=== PATIENT | male | born 1960 | race Caucasian/White ===

== ENCOUNTER → 2016-09-08 | Outpatient (CLI) | payer OTHER ==
--- NOTE | 2016-09-08 15:23 | RAD ---
Right hip radiographs History: Right hip pain for 2-3 years. Comparison: None. Findings: AP and frog-leg views of the right hip. There is severe deformity of the right hip with collapse of the femoral head as well as subchondral cyst and sclerosis formation. There is severe loss of joint space. Findings are compatible with severe degenerative change, possibly secondary to previous avascular necrosis. Impression: Severe right hip degeneration, possibly secondary to previous avascular necrosis.
--- NOTE | 2016-09-08 16:53 | RAD ---
Lumbar spine, 3 views, 09/08/2016: History: Leg and back pain The lumbar vertebral heights are well-maintained. The intervertebral disc spaces are well preserved. There are mild scattered marginal spurs. There are mild degenerative changes involving the facet joints in the lower lumbar spine. Aortic calcific plaquing is present. IMPRESSION: 1. Mild degenerative change. 2. No acute bony abnormality is detected.
== END | disposition home or self-care (01) ==
LOC: RAD 10:47
PROVIDERS: ATTEND Otolaryngology
DX: M16.11 Unilateral primary osteoarthritis, right hip (principal); M46.86 Other specified inflammatory spondylopathies, lumbar region
CPT/HCPCS: 72100; 73502

== ENCOUNTER → 2018-03-26 | Outpatient (CLI) | payer MEDICARE, OTHER ==
[~2018-03-26] MED LIST: FERR325T14 PO; HYDR-2762 PO; IBUP-1060 PO; LISI10TA2 PO; WARF-78 PO
[2018-03-26 09:30] LABS: ALBUMIN 3.7 g/dL (3.4-5.0); GFR 76.7; POTASSIUM 3.9 mmol/L (3.5-5.1)
[2018-03-26 09:33] LABS: BASO # 0.1 x10^3/uL (0.0-0.2); BASO % 1 % (0-3); EOS # 0.1 x10^3/uL (0.0-0.7); EOS % 2 % (0-3); HEMATOCRIT 42.1 % (39.0-53.0); HEMOGLOBIN 14.9 g/dL (13.0-17.5); LYMPH # 1.6 x10^3/uL (1.0-4.8); LYMPH % 25 % (24-48); MEAN CORPUSCULAR HEMOGLOBIN 34 pg (25-35); MEAN CORPUSCULAR HGB CONC 35 g/dL (31-37); MEAN CORPUSCULAR VOLUME 96 fL (79-100); MONO # 0.8 x10^3/uL (0.0-1.1); MONO % 13 % (0-9); NEUT # 3.7 x10^3uL (1.8-7.7); NEUT % 59 % (31-73); PLATELET COUNT 312 x10^3/uL (140-400); RED BLOOD COUNT 4.39 x10^6/uL (4.30-5.70); RED CELL DISTRIBUTION WIDTH 13.3 % (11.5-14.5); WHITE BLOOD COUNT 6.3 x10^3/uL (4.0-11.0)
[2018-03-26 09:47] LABS: BILIRUBIN,URINE NEGATIVE (NEG); CLARITY,URINE CLEAR; COLOR,URINE YELLOW; NITRITE,URINE NEGATIVE (NEG); PH,URINE 6.5; PROTEIN,URINE NEGATIVE (NEG-TRACE); UROBILINOGEN,URINE 0.2 mg/dL (0.2 mg/dL)
[2018-03-26 10:03] LABS: PROTHROMBIN TIME PATIENT 13.1 SEC (11.7-14.0)
[2018-03-26 10:15] LABS: SQUAMOUS EPITHELIAL CELL,UR FEW /LPF
[2018-03-26 10:16] LABS: BACTERIA,URINE 0 /HPF (0-FEW); RBC,URINE 0 /HPF (0-2)
--- NOTE | 2018-03-26 13:39 | EKG ---
[facility] [address] [place] [address] Test Date: 2018-03-26 Test Time: 13:21:50 Pat Name: MAIN GONZALEZ Department: Room: Gender: M Manager Medicare: : 1960 Requested By: JOY LAWRENCE Order Number: [id number] Reading MD: Flip Ya MD Measurements Intervals Thurston Rate: 55 P: 42 MA: 162 QRS: -53 QRSD: 66 T: 28 QT: 418 QTc: 402 Interpretive Statements SINUS RHYTHM CONSIDER PRIOR INFERIOR INFARCT Electronically Signed On 03-26-2018 15:45:18 CDT by Flip Ya MD
--- NOTE | 2018-03-26 15:30 | RAD ---
PA and lateral chest x-ray without comparison for preop, right hip surgery. FINDINGS: The lungs are clear. The cardiomediastinum is grossly unremarkable. No significant soft tissue or osseous abnormalities are seen. IMPRESSION: 1. No acute cardiopulmonary abnormality. Electronically signed by: Kevin Lerner MD (03/26/2018 3:26 PM) [facility]
== END | disposition home or self-care (01) ==
LOC: SURGPAT 13:39
PROVIDERS: ATTEND Orthopaedic Surgery Sports Medicine
DX: Z01.818 Encounter for other preprocedural examination (principal); M16.11 Unilateral primary osteoarthritis, right hip; I10 Essential (primary) hypertension
CPT/HCPCS: 36415; 71046; 80048; 81001; 82040; 85025; 85610; 85651; 85730; 87641; 93005

== ENCOUNTER → 2018-04-03 | Outpatient (CLI) | payer MEDICARE ==
--- NOTE | 2018-04-03 16:07 | CARD ---
MR#: [id number] Date of Study: 04/03/2018 Ordering Physician: ALISSA CACERES, Referring Physician: ALISSA CACERES, Tech: Itzel Sapp APPROVED REPORT EXAM: Two-dimensional and M-mode echocardiogram with Doppler and color Doppler. Other Information Quality : GoodHR: 60bpm INDICATION Pre-Op RISK FACTORS Hypertension Tobacco 2D DIMENSIONS RVDd2.9 (2.9-3.5cm)Left Atrium(2D)2.8 (1.6-4.0cm) IVSd1.0 (0.7-1.1cm)Aortic Root(2D)3.1 (2.0-3.7cm) LVDd4.6 (3.9-5.9cm)LVOT Diameter2.0 (1.8-2.4cm) PWd0.8 (0.7-1.1cm)LVDs2.3 (2.5-4.0cm) FS (%) 50.3 %SV79.5 ml LVEF(%)81.6 (>50%) Aortic Valve AoV Peak Arcenio.137.7cm/sAoV VTI23.9cm AO Peak GR.7.6mmHgLVOT Peak Arcenio.68.5cm/s LVOT VTI 20.02cmAO Mean GR.4mmHg CHANDRAKANT (VMAX)1.63ye1OIC (VTI)2.57cm2 Mitral Valve MV E Lmqkbfrg51.8cm/sMV DECEL TNZD562bv MV A Tbyejfsn89.6cm/sMV VHX11lf E/A Ratio1.2MVA (PHT)4.04cm2 TDI E/Lateral E'5.3E/Medial E'5.5 Pulmonary Valve PV Peak Biblsjyd787.1cm/sPV Peak Grad.6mmHg Tricuspid Valve TR P. Gomzmucf043uh/sRAP NKKUAPDF7xdNi TR Peak Gr.03zyThTYYQ61rtJo Pulmonary Vein S1 Myacyosh76.0cm/sD2 Rcbuchqq30.1cm/s PVa nslcccsv137aghc LEFT VENTRICLE The left ventricle is normal size. There is normal left ventricular wall thickness. The left ventricu lar systolic function is normal and the ejection fraction is within normal range. The Ejection Fracti on is 50-55%. There is normal LV segmental wall motion. The left ventricular diastolic function and f illing is normal for age. RIGHT VENTRICLE The right ventricle is borderline dilated. There is normal right ventricular wall thickness. The righ t ventricular systolic function is normal. ATRIA The left atrium size is normal. The right atrium size is normal. The interatrial septum is intact wit h no evidence for an atrial septal defect or patent foramen ovale as noted on 2-D or Doppler imaging. AORTIC VALVE The aortic valve is thickened but opens well. Doppler and Color Flow revealed trace aortic regurgitat ion. There is no significant aortic valvular stenosis. MITRAL VALVE The mitral valve is normal in structure and function. There is no mitral valve stenosis. Doppler and Color-flow revealed trace mitral regurgitation. TRICUSPID VALVE The tricuspid valve is normal in structure and function. Doppler and Color Flow revealed trace tricus pid regurgitation. There is no tricuspid valve stenosis. PULMONIC VALVE The pulmonic valve is not well visualized. Doppler and Color Flow revealed no pulmonic valvular regur gitation. There is no pulmonic valvular stenosis. GREAT VESSELS The aortic root is normal in size. Normal pulmonary venous flow (Doppler). The IVC is normal in size and collapses >50% with inspiration. PERICARDIAL EFFUSION There is no evidence of significant pericardial effusion. Critical Notification Critical Value: No <Conclusion> The left ventricular systolic function is normal and the ejection fraction is within normal range. Th e Ejection Fraction is 50-55%. There is normal LV segmental wall motion. Signed by : Flip Ya, Electronically Approved : 04/03/2018 16:06:22
== END | disposition home or self-care (01) ==
LOC: ECHO 12:54
PROVIDERS: ATTEND Internal Medicine Cardiovascular Disease
DX: R01.1 Cardiac murmur, unspecified (principal); R94.31 Abnormal electrocardiogram [ECG] [EKG]; I10 Essential (primary) hypertension
CPT/HCPCS: 93306

== ENCOUNTER 2018-04-09 08:30 | Inpatient (IN) | payer MEDICARE, OTHER ==
[~2018-04-09] VITALS: Ht 167.6 cm; Wt 73.0 kg
[2018-04-09] VITALS (9 sets, daily range): BP systolic 124–161; BP diastolic 78–103
[~2018-04-09 08:30] MED LIST changes: +ACETAMINOPHEN 500 MG TABLET PO PRN; -FERR325T14 PO; -HYDR-2762 PO; +HYDROcodone/APAP 7.5/325MG 1 TAB TABLET PO PRN; +HYDROmorphone 2 MG/ML VIAL IV PRN; +IV RINGERS,LACTATED 1000ML 1,000 ML IV SCH; +LIDOCAINE 1% PF 2 ML VIAL. ID PRN; +MELOXICAM 7.5 MG TABLET PO PRN; +MORPHINE SULFATE 2 MG/ML VIAL. IV PRN; +ONDANSETRON PF 4 MG/2 ML VIAL. IV PRN; +PROCHLORPERAZINE 10 MG/2 ML VIAL. IV PRN; +TRANEXAMIC ACID 1,000 MG in IV NS 50ML -- 1ST BAG INJ ONE; +TRANEXAMIC ACID 1,000 MG in IV NS 50ML -- 2ND BAG INJ ONE; +TV=100ml MORPHINE 5 MG, KETOROLAC 30 MG, ROPIVacaine 0.5% PF 60 ML, EPINEPH... INT ART ONE; -WARF-78 PO; +fentaNYL PF VIAL 100 MCG/2 ML VIAL IV PRN
[2018-04-09] MEDS ORDERED: WARF-78 PO (08:58)
[2018-04-09] MEDS ORDERED: LIDOCAINE 2% PF Vial for OR 5 ML VIAL. ONE (09:28)
[2018-04-09] MEDS ORDERED: fentaNYL PF VIAL 250 MCG/5 ML VIAL ONE (09:28)
[2018-04-09] MEDS ORDERED: MIDAZOLAM HCL/PF 2 MG/2 ML VIAL. ONE (09:28)
[2018-04-09] MEDS ORDERED: ROCURONIUM 50 MG/5 ML VIAL. ONE (09:28)
[2018-04-09] MEDS ORDERED: PROPOFOL 20 ML IV ONE (09:28)
[2018-04-09] MEDS ORDERED: ONDANSETRON PF 4 MG/2 ML VIAL. ONE ×2 (09:29)
[2018-04-09] MEDS ORDERED: DEXAMETHASONE SOD PHOS 20 MG/5 ML VIAL. ONE ×2 (09:29)
[2018-04-09] MEDS ORDERED: MORPHINE SULFATE 2 MG/ML VIAL. IV PRN (09:45)
[2018-04-09] MEDS ORDERED: ZOLPIDEM 5 MG TABLET. PO PRN (09:45)
[2018-04-09] MEDS ORDERED: 0.9 % SODIUM CHLORIDE 10 ML DISP.SYRIN. IV PRN (09:45)
[2018-04-09] MEDS ORDERED: METOCLOPRAMIDE HCL 10 MG/2 ML VIAL. IV PRN (09:45)
[2018-04-09] MEDS ORDERED: MORPHINE SULFATE 4 MG/ML VIAL. IV PRN ×2 (09:45)
[2018-04-09] MEDS ORDERED: oxyCODONE/APAP 7.5/325 1 TAB TABLET PO PRN (09:45)
[2018-04-09] MEDS ORDERED: PROCHLORPERAZINE 5 MG TABLET. PO PRN (09:45)
[2018-04-09] MEDS ORDERED: oxyCODONE/APAP 5/325 1 TAB TABLET PO PRN (09:45)
[2018-04-09] MEDS ORDERED: DEXTROSE 50% 25 GM / 50ML DISP.SYRIN. IV PRN (09:45)
[2018-04-09] MEDS ORDERED: MORPHINE SULFATE 10 MG/ML VIAL. IV PRN (09:45)
[2018-04-09] MEDS ORDERED: fentaNYL PF VIAL 100 MCG/2 ML VIAL IV PRN ×2 (09:45)
[2018-04-09] MEDS ORDERED: HYDROcodone/APAP 10/325 1 TAB TABLET PO PRN (09:45)
[2018-04-09] MEDS ORDERED: CALCIUM CARBONATE 500 MG TAB.CHEW PO PRN (09:45)
[2018-04-09] MEDS ORDERED: PROCHLORPERAZINE 10 MG/2 ML VIAL. IV PRN (09:45)
[2018-04-09] MEDS ORDERED: ACETAMINOPHEN 325 MG TABLET. PO PRN (09:45)
[2018-04-09] MEDS ORDERED: traMADol 50 MG TABLET PO PRN ×2 (09:45)
[2018-04-09] MEDS ORDERED: diphenhydrAMINE 50 MG/ML VIAL IV PRN (09:45)
[2018-04-09 09:52] LABS: PROTHROMBIN TIME PATIENT 13.1 SEC (11.7-14.0)
[2018-04-09] MEDS ORDERED: PHENYLEPHRINE in 0.9% NACL PF 1 MG/10 ML SYRINGE. IV ONE (10:44)
[2018-04-09] MEDS: SENNOSIDES/DOCUSATE 8.6/50MG TABLET. PO SCH (11:00)
[2018-04-09] MEDS ORDERED: NEOSTIGMINE METHYLSULFATE 5 MG/5 ML SYRINGE. ONE (11:59)
[2018-04-09] MEDS ORDERED: GLYCOPYRROLATE 1 MG/5 ML VIAL. ONE (11:59)
[2018-04-09] MEDS ORDERED: LABETALOL 20 MG/4 ML DISP.SYRIN. IVP ONE (12:19)
--- NOTE | 2018-04-09 12:19 | PDOC4 ---
Operative Note Operative Note Due to procedure: 04/09/2018 Surgeon: Leo Lawrence Linking Machine Operator: Frandy Ortiz APRN Preoperative diagnosis: Advanced primary right hip degenerative joint disease Postoperative diagnosis: Same Procedure performed: Right total hip arthroplasty Anesthesia: Gen. Findings: Advanced primary right hip degenerative joint disease Blood loss 100 mL Complications: None Components inserted: Fleming and nephew size 7 standard offset anthology femur, 52 mm outer diameter R3 shell, 36 liner with a 20 elevation directed posteriorly, Oxinium 36+0 femoral head Reason for procedure: Patient is a very pleasant 57-year-old gentleman with severe progressive right hip and groin pain. Clinical and radiographic examination were consistent with above diagnosis and after failure of conservative therapies, we discussed the risks, benefits, and alternatives and he wished to proceed with the above surgery. Description of procedure: Patient was greeted in the preoperative area by myself for the correct extremity was verified and marked. Is taken back to the operative suite and his antibiotics started as he was brought back. Once in the operating room, he was transferred gently supine to the operating room table and had successful induction of a general anesthetic. He was then set in a lateral decubitus position with the right side up and secured to the bed with her padded hip positioning devices. Axillary roll was used. We then proceeded to prep and drape right lower extremity in our usual sterile fashion including an [place]. I then palpated and marked surface anatomy and harika a line from my standard posterolateral skin incision and incised skin with a scalpel and dissected subcutaneous tissue and cauterized bleeders as a were encountered. Identified the fascia kalpana of the thigh and incised this in line with the skin incision, bluntly splitting the gluteus hai. Our self- retaining retractor was then placed. I swept bursal tissue posteriorly and identified his piriformis and quadratus and took these down with electrocautery , taking the latter for later repair. After this, I incised the hip capsule a Z- plasty type incision, taking ends of it for later repair. I was unable to dislocate the femoral head. I palpated and marked reproducible landmarks at greater and lesser as well as femoral head and made measurements for length and offset. I then palpated and made a line with electrocautery on the femoral neck about 1 cm proximal to the lesser trochanter and made my femoral neck cut. I delivered the bony pieces from the operative field. I then placed my acetabular retractors and inspected the acetabulum. I removed soft tissue from the floor the acetabulum and identified the transverse acetabular ligament. I excised the labrum. I then began reaming, starting with a 44 and reaming up to 52 which gave a good punctate bleeding bony bed. I impacted my cup in position referencing his [place] anatomy, transverse acetabular ligament, and crossbar attachment. I then palpated for his greater sciatic notch and used this for a guide placing a screw into his posterior column which gave good purchase. Prior to impacting scopic, it should be noted I did irrigate out the operative field. Again at this point, irrigated out the operative field and then impacted my polyethylene liner into position. The elevation was directed posteriorly. I then removed the acetabular retractors and direct my attention to the proximal femur, repositioning the leg. Proximal femoral elevator was introduced. I did then used the helena cutting osteotome followed by the lateralizing reamer and canal finding reamer. I then began broaching and broached up to a size 6. I trialed the standard +0 but was short of my measurements and therefore remove the size 6 stem and impacted a 7 into position which gave a good fit and fill. I then placed the +0 ball and measured and reduced the hip. I was happy with the measurements and stability as well as leg length. The hip was then dislocated again and I tried the +4 but it was too tight to reduce. Therefore I removed the size 7 broach, the femoral canal was thoroughly irrigated, I then impacted the size 7 stem into position. I then again trialed the +0 and +4, the +4 was not able to be reduced. The +0 gave great range of motion and stability. I felt his leg lengths were appropriate as well. We then dislocated the hip again, removed the trial ball, Montejo dried the Caceres taper region and gently impacted the Oxinium femoral head and position. I then irrigated out the operative field and cup again. I inspected the acetabulum to make sure there was no loose debris which it was not. They present reduce. I then closed capsule with simple interrupted #2 Ethibond. Piriformis was reapproximated through drill holes. Quadratus repaired with mruzlb-qa-utkel #1 Vicryl. I then injected my periarticular mixture into the nneka-incisional soft tissues. The self-retaining retractor was then removed and I closed the fascia with running # 2 Quill. Inverted interrupted 20 was used for the the subcutaneous tissue, multilayered fashion. Running 4-0 Monocryl in a buried subcuticular fashion was used for skin. The counts were correct 2 prior to wound closure. No complications. Surgery was well tolerated by the patient. At the conclusion, the hip was cleansed and dried and our incisional wound VAC was applied. Patient was laid gently supine and transferred gently supine to the hospital bed. He was taken to the PACU in a stable and extubated condition. Postoperative plan is to admit him to the joint center for DVT and antibiotic prophylaxis. He'll begin his rehabilitation. LEO LAWRENCE II, MD Apr 09, 2018 12:19
[2018-04-09] MEDS ORDERED: RACEPINEPHRINE 2.25% 0.5 ML NEBU. ONE (12:20)
[2018-04-09] MEDS ORDERED: LIDOCAINE 2% 100 MG/5 ML SYRINGE. ONE (12:20)
--- NOTE | 2018-04-09 13:34 | RAD ---
AP pelvis, single view right proximal femur 04/09/2018 12:55 PM Indication: POST OP, RIGHT HIP REPLACMENT Comparison: right hip radiographs, March 08, 2018. Findings: There are postsurgical changes following recent right total hip arthroplasty. Hardware is appropriate in position without evidence of complication. No fractures or dislocations are identified. Stigmata of recent surgery including surgical drainage catheter noted. Impression: Expected postsurgical changes following right total hip arthroplasty. Electronically signed by: Boom Alcantara MD (04/09/2018 1:30 PM) [facility]
[2018-04-09] MEDS: LISINOPRIL 10 MG TABLET PO SCH (14:17)
[2018-04-09] MEDS: HYDROcodone/APAP 7.5/325MG 1 TAB TABLET PO PRN ×2 (14:17→21:06)
[2018-04-09] MEDS: ceFAZolin SODIUM 1 GM in IV DEXTROSE 5% 50 ML IV SCH ×2 (15:55→22:04)
[2018-04-09] MEDS ORDERED: WARFARIN 7.5 MG TABLET. PO ONE (16:00)
[2018-04-09] MEDS: IV DEXTROSE 5 %-0.45 % NACL 1,000 ML IV SCH ×2 (16:00→19:44)
[2018-04-09] MEDS: FERROUS SULFATE 325 MG TABLET. PO SCH (17:06)
[2018-04-09] MEDS: CELECOXIB 100 MG CAPSULE. PO SCH (21:05)
[2018-04-10 02:40] VITALS: BP 111/70
[2018-04-10] MEDS: ceFAZolin SODIUM 1 GM in IV DEXTROSE 5% 50 ML IV SCH (03:57)
[2018-04-10] MEDS: HYDROcodone/APAP 7.5/325MG 1 TAB TABLET PO PRN ×4 (04:01→16:47)
[2018-04-10 05:19] LABS: HEMATOCRIT 40.7 % (39.0-53.0); HEMOGLOBIN 14.1 g/dL (13.0-17.5)
[2018-04-10 05:31] LABS: PROTHROMBIN TIME PATIENT 17.1 SEC (11.7-14.0)
[2018-04-10] MEDS: IV DEXTROSE 5 %-0.45 % NACL 1,000 ML IV SCH ×2 (05:44→15:44)
[2018-04-10] MEDS ORDERED: MAGNESIUM HYDROXIDE 2,400 MG/30 ML ORAL.SUSP. PO PRN (06:00)
[2018-04-10 06:21] VITALS: BP 105/71
[2018-04-10] MEDS: MULTIVITAMIN with MINERAL TABLET. PO SCH (08:09)
[2018-04-10] MEDS: FERROUS SULFATE 325 MG TABLET. PO SCH ×2 (08:09→16:47)
[2018-04-10] MEDS: CELECOXIB 100 MG CAPSULE. PO SCH ×2 (08:09→20:22)
[2018-04-10] MEDS: TAMSULOSIN 0.4 MG CAP.ER.24H. PO SCH (08:09)
[2018-04-10] MEDS: SENNOSIDES/DOCUSATE 8.6/50MG TABLET. PO SCH (08:10)
[2018-04-10] MEDS: LISINOPRIL 10 MG TABLET PO SCH (08:13)
[2018-04-10 11:00] VITALS: BP 118/69
--- NOTE | 2018-04-10 13:14 | PDOC ---
ORTHO PROGRESS NOTES Subjective Pain is tolerable. He is tolerating regular diet. He has been up and walking. He mentions it to close more difficulty to void, he was able to urinate however. Vitals Vital Signs Date Time Temp Pulse Resp B/P (MAP) Pulse Ox O2 Delivery O2 Flow Rate FiO2 04/10/18 11:00 97.5 61 18 118/69 (85) 98 Room Air 97.5 04/09/18 12:28 8 Labs Laboratory Tests Test 04/09/18 09:05 04/10/18 04:50 Prothrombin Time 13.1 SEC (11.7-14.0) 17.1 SEC (11.7-14.0) Prothromb Time International Ratio 1.0 (0.8-1.1) 1.5 (0.8-1.1) Activated Partial Thromboplast Time 27 SEC (24-38) Hemoglobin 14.1 g/dL (13.0-17.5) Hematocrit 40.7 % (39.0-53.0) Mean Corpuscular Hemoglobin Concent 35 g/dL (31-37) Laboratory Tests Test 04/10/18 04:50 Hemoglobin 14.1 g/dL (13.0-17.5) Hematocrit 40.7 % (39.0-53.0) Mean Corpuscular Hemoglobin Concent 35 g/dL (31-37) Prothrombin Time 17.1 SEC (11.7-14.0) Prothromb Time International Ratio 1.5 (0.8-1.1) Notes Awake and alert. Sitting in a chair. Dressing is intact and dry. Normal motor and sensation is present in his right lower extremity Assessment and Plan He'll continue PT and OT and Coumadin. We will start Flomax. JOY LAWRENCE II, MD Apr 10, 2018 13:14
[2018-04-10] MEDS ORDERED: BISACODYL 10 MG SUPP.RECT. PR PRN (16:00)
[2018-04-10] MEDS ORDERED: WARFARIN 2 MG TABLET. PO ONE (16:00)
[2018-04-10 17:58] VITALS: BP 111/67
[2018-04-11 04:40] LABS: HEMATOCRIT 37.9 % (39.0-53.0); HEMOGLOBIN 12.9 g/dL (13.0-17.5)
[2018-04-11 04:45] LABS: PROTHROMBIN TIME PATIENT 18.5 SEC (11.7-14.0)
[2018-04-11 06:02] VITALS: BP 118/80
--- NOTE | 2018-04-11 07:12 | PDOC ---
ORTHO PROGRESS NOTES Subjective Patient doing well with no new complaints this morning. Post-op Day: 2 Procedure R ARIEL Vitals Vital Signs Date Time Temp Pulse Resp B/P (MAP) Pulse Ox O2 Delivery O2 Flow Rate FiO2 04/11/18 06:02 98.0 58 16 118/80 (93) 96 Room Air 98.0 Labs Laboratory Tests Test 04/09/18 09:05 04/10/18 04:50 04/11/18 03:45 Prothrombin Time 13.1 SEC (11.7-14.0) 17.1 SEC (11.7-14.0) 18.5 SEC (11.7-14.0) Prothromb Time International Ratio 1.0 (0.8-1.1) 1.5 (0.8-1.1) 1.6 (0.8-1.1) Activated Partial Thromboplast Time 27 SEC (24-38) Hemoglobin 14.1 g/dL (13.0-17.5) 12.9 g/dL (13.0-17.5) Hematocrit 40.7 % (39.0-53.0) 37.9 % (39.0-53.0) Mean Corpuscular Hemoglobin Concent 35 g/dL (31-37) 34 g/dL (31-37) Laboratory Tests Test 04/11/18 03:45 Hemoglobin 12.9 g/dL (13.0-17.5) Hematocrit 37.9 % (39.0-53.0) Mean Corpuscular Hemoglobin Concent 34 g/dL (31-37) Prothrombin Time 18.5 SEC (11.7-14.0) Prothromb Time International Ratio 1.6 (0.8-1.1) Assessment and Plan Patient reports minimal pain. N/V intact distally calf soft and nontender dressing dry and intact discharge planning possibly for today after PT. JENNIFER MAYERS APRN Apr 11, 2018 07:11
[2018-04-11] MEDS: TAMSULOSIN 0.4 MG CAP.ER.24H. PO SCH (07:54)
[2018-04-11] MEDS: CELECOXIB 100 MG CAPSULE. PO SCH (07:54)
[2018-04-11] MEDS: MULTIVITAMIN with MINERAL TABLET. PO SCH (07:54)
[2018-04-11] MEDS: FERROUS SULFATE 325 MG TABLET. PO SCH (07:54)
[2018-04-11] MEDS: SENNOSIDES/DOCUSATE 8.6/50MG TABLET. PO SCH (07:54)
[2018-04-11] MEDS: LISINOPRIL 10 MG TABLET PO SCH (07:58)
[2018-04-11] MEDS: HYDROcodone/APAP 7.5/325MG 1 TAB TABLET PO PRN ×3 (08:01→15:30)
--- NOTE | 2018-04-11 09:48 | DISCH ---
DISCHARGE INSTRUCTIONS Condition on Discharge Condition on Discharge: Stable Activity After Discharge Activity Instructions for Disc: Other, see below Other activity instructions: use walker Bathing Instructions: Shower-keep dressing dry Weight Bearing Status after Di: As tolerated Diet after Discharge Diet after Discharge: Regular Wound Incision Care Wound/Incision Care: Ice to area for comfort, Keep wound/cast CDI, Do not change dressing Contacting the DRKarl after DC Call your doctor for: Concerns you may have Follow-Up Follow up with: Paola in 2 wks Follow Up With: outpatient PT Warfarin Follow-Up Warfarin Follow UP: per pharmacy JOY LAWRENCE II, MD Apr 11, 2018 09:48
[2018-04-11 13:04] VITALS: BP 118/75
[2018-04-11] MEDS ORDERED: FERR325T14 PO (13:07)
[2018-04-11] MEDS ORDERED: HYDR-2762 PO (13:08)
[2018-04-11] MEDS ORDERED: WARFARIN 4 MG TABLET. PO ONE (14:00)
--- NOTE | 2018-04-11 16:12 | PATHOLOGY ---
[facility] Accession Number: [id number] . 01 Material submitted: . RIGHT HIP BONE . 01 Clinical history: . Hip pain . 02 Diagnosis: Femoral head, right total hip arthroplasty: - Advanced degenerative arthritis with focal subarticular cystic degeneration. . (JPM:vjm;04/11/2018) [facility]/04/11/2018 . 02 Electronically signed: . Javier Maldonado MD, Pathologist NPI- [id number] . 01 Gross description: . Received in formalin labeled "Damon Geronimo, right hip bone," is a femoral head measuring 5.2 x 4.8 x 5.4 cm in greatest dimensions. The articular surface is smooth to granular and pale eason to dark brown in appearance, displaying an area of focal eburnation/pitting measuring 4.5 x 2.4 cm. Sectioning reveals a cancellous, pale yellow to hemorrhagic marrow space. Two possible subcortical cysts are noted underlying the eburnated area, measuring 0.7 cm each in maximum dimension. Wellness Specialist eburnation/pitting is submitted in cassette A1, following decalcification. Wellness Specialist subcortical cysts and hemorrhage are submitted in cassette A2, following decalcification. (DAC; 04/10/2018) XDC/XDC . 02 Microscopic: . . . 02 Pathologist provided ICD-10: M16.11 . 02 CPT . 524376, [id number] Specimen Comment: A courtesy copy of this report has been sent to Specimen Comment: [phone]. Specimen Comment: Report sent to Specimen Comment: A duplicate report has been generated due to demographic updates. Performed at: 01 [facility] [address] [place] [address] [place], [place] [id number] MD Fernando Gonzalez MD Phone: [phone] Performed at: [address] [id number] MD Javier Maldonado MD Phone: [phone]
--- NOTE | 2018-04-12 10:07 | PDOC3 ---
Discharge Summary Visit Information Date of Admission: Apr 09, 2018 Date of Discharge: Apr 11, 2018 Admitting Diagnosis: advanced right hip primary degenerative joint disease Brief Hospital Course Allergies Allergies Coded Allergies Type Severity Reaction Last Updated Verified No Known Drug Allergies 04/09/18 No Vital Signs Vital Signs Date Time Temp Pulse Resp B/P (MAP) Pulse Ox O2 Delivery O2 Flow Rate FiO2 04/11/18 15:30 Room Air 04/11/18 13:04 98.2 67 18 118/75 (89) 98 98.2 Lab Results Laboratory Tests Test 04/11/18 03:45 Hemoglobin 12.9 g/dL (13.0-17.5) Hematocrit 37.9 % (39.0-53.0) Mean Corpuscular Hemoglobin Concent 34 g/dL (31-37) Prothrombin Time 18.5 SEC (11.7-14.0) Prothromb Time International Ratio 1.6 (0.8-1.1) Brief Hospital Course Mr. Geronimo is a 57 old male who presented to my outpatient orthopedic surgery clinic with complaints of severe and progressive pain that failed conservative therapies including injections. We had a discussion of the risks, benefits, alternatives to total hip arthroplasty and he elected to proceed. He tolerated surgery well cover well from anesthesia in the PACU. He was then taken to the joint Center for care and observation. He did receive PT, OT, DVT and antibiotic prophylaxis. He recovered well from surgery and remained hemodynamically stable and afebrile throughout the hospitalization. Pain was controlled on oral pain medicine at the time of discharge. Good progress was made with therapy throughout the hospitalization, and activities of daily living were accomplished by the patient. The incision was clean dry and intact and the operative extremity had normal motor and sensation. Discharge Information Condition at Discharge: Stable Follow Up: Weeks Disposition/Orders: D/C to Home Scheduled Ferrous Sulfate (Ferrous Sulfate) 325 Mg Tablet, 1 TAB PO DAILY for supplement iron, #60 Ref 0 (Reported) Entered as Reported by: ADELA BLUM on 04/11/18 1307 Lisinopril (Lisinopril) 10 Mg Tablet, 10 MG PO DAILY for FOR HYPERTENSION, #30 Ref 0 (Reported) Entered as Reported by: JOHN SAEZ on 03/23/18 1238 Last Taken: Unknown Dose on 04/08/18 Last Action: Continued on 04/09/18 0953 by TOMMIE LAWRENCE MD Scheduled PRN Hydrocodone Bit/Acetaminophen (Hydrocodone-Apap 7.5-325 ) 1 Each Tablet, 1 TAB PO PRN Q3HRS PRN for PAIN, #50 Ref 0 (Reported) Entered as Reported by: ADELA BLUM on 04/11/18 1308 Warfarin Sodium (Coumadin) 5 Mg Tablet, 1 TAB PO ONCE PRN for OTHER, #90 Ref 1 ( Reported) Entered as Reported by: ANDRIA MOREL on 04/09/18 0858 Last Taken: Unknown Dose on 04/08/18 1700 Last Action: HELD on 04/09/18952 by TOMMIE LAWRENCE MD Discontinued Medications Ibuprofen (Ibuprofen) 800 Mg Tablet, 800 MG PO PRN Q6HRS PRN for INFLAMMATION, ( Reported) Entered as Reported by: JOHN SAEZ on 03/23/18 1238 Last Taken: Unknown Dose on 03/26/18 Last Action: HELD on 04/09/18952 by TOMMIE LAWRENCE MD Patient Instructions Patient Instructions He will be discharged home. We will get him started on outpatient therapy as soon as we are able. The patient will be on Coumadin for a month. He can weight-bear as tolerated. Worrisome signs and symptoms that should prompt a phone call to my office were discussed. We'll see him back in 2 weeks, sooner should a problem arise. JOY LAWRENCE II, MD Apr 12, 2018 10:06
== END 2018-04-11 15:45 | disposition home or self-care (01) | DRG 470 ==
LOC: OPSVCIP 08:30 → 4 SOUTHEST 13:10
PROVIDERS: ADMIT Orthopaedic Surgery Sports Medicine; ATTEND Orthopaedic Surgery Sports Medicine
PROC: 0SR906Z Replacement of Right Hip Joint with Oxidized Zirconium on Polyethylene Synthetic Substitute, Open Approach (ICD-10-PCS; principal; 2018-04-09 10:00)
DX: M16.11 Unilateral primary osteoarthritis, right hip (principal)
CPT/HCPCS: 36415; 72170; 85014; 85018; 85610; 85730; 86850; 86900; 86901; 88304; 88311; A7015; C1713; J0171; J0690; J1100; J1885; J2001; J2250; J2270; J2370; J2405; J2704; J2710; J2795; J3010; J3490; J7030; J7120; 97110; 97116; 97150; 97530; 97535

== ENCOUNTER → 2018-04-18 | Outpatient (CLI) | payer MEDICARE ==
[2018-04-11 13:04] VITALS: BP 118/75
[~2018-04-18] MED LIST changes: -ACETAMINOPHEN 500 MG TABLET PO PRN; +FERR325T14 PO; +HYDR-2762 PO; -HYDROcodone/APAP 7.5/325MG 1 TAB TABLET PO PRN; -HYDROmorphone 2 MG/ML VIAL IV PRN; -IV RINGERS,LACTATED 1000ML 1,000 ML IV SCH; -LIDOCAINE 1% PF 2 ML VIAL. ID PRN; -MELOXICAM 7.5 MG TABLET PO PRN; -MORPHINE SULFATE 2 MG/ML VIAL. IV PRN; -ONDANSETRON PF 4 MG/2 ML VIAL. IV PRN; -PROCHLORPERAZINE 10 MG/2 ML VIAL. IV PRN; -TRANEXAMIC ACID 1,000 MG in IV NS 50ML -- 1ST BAG INJ ONE; -TRANEXAMIC ACID 1,000 MG in IV NS 50ML -- 2ND BAG INJ ONE; -TV=100ml MORPHINE 5 MG, KETOROLAC 30 MG, ROPIVacaine 0.5% PF 60 ML, EPINEPH... INT ART ONE; +WARF-78 PO; -fentaNYL PF VIAL 100 MCG/2 ML VIAL IV PRN
[2018-04-18 12:48] LABS: PROTHROMBIN TIME PATIENT 15.7 SEC (11.7-14.0)
== END | disposition home or self-care (01) ==
LOC: LAB 12:09
PROVIDERS: ATTEND Orthopaedic Surgery Sports Medicine
DX: Z51.81 Encounter for therapeutic drug level monitoring (principal); Z79.01 Long term (current) use of anticoagulants
CPT/HCPCS: 36415; 85610